=== PATIENT | female | born 1950 | race Caucasian/White ===

== ENCOUNTER → 2021-07-29 | Outpatient (CLI) | payer MEDICARE | LOC: MAMO 11:30 | DX: Z12.31 Encounter for screening mammogram for malignant neoplasm of breast (principal) | CPT/HCPCS: 77063; 77067 ==

== ENCOUNTER → 2021-11-24 | Outpatient (CLI) | payer MEDICARE | LOC: EXRD 10:02 | DX: R05.3 Chronic cough (principal) | CPT/HCPCS: 71046 ==